=== PATIENT | female | born 1930 | race Caucasian/White ===

== ENCOUNTER → 2016-08-11 | Outpatient (CLI) | payer MEDICARE, BC ==
[~2016-08-11] MED LIST: ASA CHILDREN'S81 MG PO; ASCORBIC ACID500 MG PO; BACITRACIN OPH3.5 GM TP; CALTRATE-600 W600 MG PO; COLACE-DPS100 MG PO; DULCOLAX-DPS10 MG PR; DUONEB DPS3 ML IH; FEOSOL-DPS325 MG PO; LOTENSIN DPS20 MG PO; LYRICA50 MG PO; MAALOX DPS30 ML PO; MILK OF MAGNESI10 ML PO; NITROSTAT0.4 MG SL; NORCO 7.5-3251 EACH PO; NORVASC5 MG PO; OMEGA-3 DPS1000 MG PO; OXY IR DPS5 MG PO; PAMELOR DPS10 MG PO; SENOKOT S1 TAB PO; SPORTS CREAM85 GM TP; TEARS AGAIN15 ML OU; THERAPEUTIC MUL1 TAB PO; TYLENOL DPS325 MG PO; TYLENOL EXTRA500 M1 PO; VITAMIN D1000 UNI1 PO; ZOLOFT DPS100 MG PO
== END | disposition home or self-care (01) ==
LOC: RAD.S 08:36
DX: M54.17 Radiculopathy, lumbosacral region (principal); M79.7 Fibromyalgia; Z98.1 Arthrodesis status; Z87.39 Personal history of other diseases of the musculoskeletal system and connective tissue; M48.06 Spinal stenosis, lumbar region; S33.140D Subluxation of L4/L5 lumbar vertebra, subsequent encounter

== ENCOUNTER 2016-08-25 05:38 | Day surgery (SDC) | payer MEDICARE, BC ==
[~2016-08-25] VITALS: Ht 144.8 cm; Wt 65.0 kg
[~2016-08-25 05:38] MED LIST changes: -BACITRACIN OPH3.5 GM TP; -COLACE-DPS100 MG PO; -DUONEB DPS3 ML IH; -LYRICA50 MG PO; -MILK OF MAGNESI10 ML PO; -NITROSTAT0.4 MG SL; -NORCO 7.5-3251 EACH PO; -TEARS AGAIN15 ML OU; -TYLENOL DPS325 MG PO
[2016-11-26] MEDS ORDERED: COLACE-DPS100 MG PO (11:20)
[2016-11-26] MEDS ORDERED: LYRICA50 MG PO (11:20)
[2016-11-26] MEDS ORDERED: MILK OF MAGNESI10 ML PO (11:20)
[2016-11-26] MEDS ORDERED: NORCO 7.5-3251 EACH PO (11:21)
[2016-11-26] MEDS ORDERED: BACITRACIN OPH3.5 GM TP (11:21)
[2016-11-26] MEDS ORDERED: TYLENOL DPS325 MG PO (11:22)
[2016-11-26] MEDS ORDERED: DUONEB DPS3 ML IH (11:22)
[2016-11-26] MEDS ORDERED: NITROSTAT0.4 MG SL (11:36)
[2016-11-26] MEDS ORDERED: TEARS AGAIN15 ML OU (11:36)
== END 2016-08-25 10:31 | disposition home or self-care (01) ==
LOC: SSS 05:38 → EDSTATUS 07:00 → SSS 07:00 → PTH.S 07:00 → SSS 07:45
DX: M48.07 Spinal stenosis, lumbosacral region (principal); M51.15 Intervertebral disc disorders with radiculopathy, thoracolumbar region; M48.06 Spinal stenosis, lumbar region; I10 Essential (primary) hypertension; Z90.49 Acquired absence of other specified parts of digestive tract; Z90.710 Acquired absence of both cervix and uterus; Z98.890 Other specified postprocedural states